=== PATIENT | female | born 1935 | race Caucasian/White ===

== ENCOUNTER 2023-03-19 13:48 | Emergency (ER) | payer MEDICARE, OTHER, SELFPAY ==
--- NOTE | 2023-03-19 13:50 | CRLHL7_ITS ---
For Patients: As a result of the Cures Act, medical imaging exams and procedure reports are released immediately into your electronic medical record. You may view this report before your referring provider. If you have questions, please contact your health care provider. INDICATION: Trauma. Fall. Hip pain. TECHNIQUE: AP pelvis and 2 views of the left hip. FINDINGS: No acute fracture or dislocation of the pelvis or left hip. Degenerative change of the lower lumbar spine. IMPRESSION: Negative pelvis and left hip. Dictated by Sudhakar Perry MD @ 03/19/2023 2:34:13 PM (Electronically Signed)
[2023-03-19 13:54] VITALS: BP 142/71; PULSE 69; RESP 15; TEMP 36.8; O2SAT 97; BMI 21.6
--- NOTE | 2023-03-19 13:54 | ED.GENADULT ---
HPI - General Adult General Chief complaint: Extremity Pain/Injury, Lower Stated complaint: Hip Pain Time Seen by Provider: 03/19/23 13:49 History of Present Illness HPI narrative: Patient is an 87 year white female memory care patient who had a witnessed fall she initially was reported to have some right hip pain was sent in by ambulance today ER. Should her vital signs have been stable. She complains limitedly. She has a picture sheet that shows her emotional state and needs. She is unable to really pick out any information about her pain or if she is in pain. She seems to have some discomfort in her left hip area, right hip she is able to flex extend fairly fully with my assistance. Her left hip as well but she has some discomfort in her left hip. Her legs are not shortened or externally rotated. She has no tenderness apparent to head neck back chest or abdomen or upper extremity. Again exam and history is limited due to her cognitive condition Related Data Home Medications Medication Instructions Recorded Confirmed acetaminophen 325 mg capsule 650 mg PO Q6H PRN 03/19/23 03/19/23 aspirin 81 mg chewable tablet 81 mg PO DAILY 03/19/23 03/19/23 (Aspirin Childrens) Allergies Allergy/AdvReac Type Severity Reaction Status Date / Time Sulfa (Sulfonamide Allergy Intermediate Unknown Verified 03/19/23 13:54 Antibiotics) adhesive tape AdvReac Intermediate Unknown Verified 03/19/23 13:54 Review of Systems Status of ROS: Reports: unobtainable due to medical condition [facility] Social History Smoking Status: Never smoker Do you use any of these nicotine containing products: None Second hand tobacco smoke exposure: No How often do you have a drink containing alcohol: never How often do you have six or more drinks on one occasion: Never AUDIT-C Alcohol total score: 0 Non-prescribed substance use: denies use service: No Exam Narrative: Exam Narrative: Objective: In general patient but does not appear in distress she is transferred from the [facility] HEENT is unremarkable no obvious trauma or injury no midline tenderness to palpation back exam unremarkable chest unremarkable abdomen soft pelvis is stable she is able to flex extend her hips internally external external internally and externally rotate her hips fairly well, seems a little more discomfort on the left 1 distal CMS is normal left lower extremity and right lower extremity Good peripheral perfusion noted. Apparently the fall was accidental Const: Vital Signs, click to edit/add: Vital Signs - 24 hr 03/19/23 13:54 Temperature 98.2 F Pulse Rate [Pulse Oximeter] 69 Respiratory Rate 15 Blood Pressure [Ri ght Upper Arm] 142/71 H Pulse Oximetry 97 Oxygen Delivery Me thod Room Air Course Vital Signs Vital signs: Initial Vital Signs Temperature 98.2 F 03/19/23 13:54 Temperature Source Temporal Artery Scan 03/19/23 13:54 Pulse Rate 69 03/19/23 13:54 Respiratory Rate 15 03/19/23 13:54 Blood Pressure 142/71 H 03/19/23 13:54 Blood Pressure Mean 94 03/19/23 13:54 Pulse Oximetry 97 03/19/23 13:54 Oxygen Delivery Method Room Air 03/19/23 13:54 Vital Signs Temperature 98.2 F 03/19/23 13:54 Pulse Rate 69 03/19/23 13:54 Respiratory Rate 15 03/19/23 13:54 Blood Pressure 142/71 H 03/19/23 13:54 Pulse Oximetry 97 03/19/23 13:54 Oxygen Delivery Method Room Air 03/19/23 13:54 Temperature 98.2 F 03/19/23 13:54 Pulse Rate 69 03/19/23 13:54 Respiratory Rate 15 03/19/23 13:54 Blood Pressure 142/71 H 03/19/23 13:54 Pulse Oximetry 97 03/19/23 13:54 Oxygen Delivery Method Room Air 03/19/23 13:54 Medical Decision Making [facility] Narrative Medical decision making narrative: [age] year white female memory care patient with fall with reported right hip pain but seems to have more clinically relevant left hip pain. Will check a pelvis x-ray left hip x-ray. Will give her some Tylenol orally. Disposition pending findings above. Addendum: The patient's daughter Mendy is here. Low well as pelvis and left hip were negative. Will see if we can do little ambulation as she typically ambulates at home. If she passes with physical therapy assessment I think we can allow her to go back to Memory Care in [place] at [place]. Patient was able to ambulate with assistance and they feel they can get additional assistance at [facility]. The patient will be discharged home, return to primary care or to us as needed. Discharge Plan Discharge Clinical Impression: Fall Patient Disposition: Home w/ Parent or Adult Condition: Improved Additional Instructions: Ambulation as tolerated, would recommend use of a walker. Tylenol as needed for discomfort, return if problems or concerns. Update regular physician within the next day or 2 Activity Level: Light activity Discharge Diet: Regular Prescriptions: No Action acetaminophen 325 mg capsule 650 mg PO Q6H PRN aspirin [Aspirin Childrens] 81 mg tablet,chewable 81 mg PO DAILY Stand Alone Forms: [employer] Info Instructions
[2023-03-19] MEDS: ACETAMINOPHEN 500 MG TABLET 1000 MG PO (15:33)
== END 2023-03-19 16:10 | disposition home or self-care (01) ==
PROVIDERS: Emergency Provider Family Medicine; PCP Family Medicine
DX: M25.551 Pain in right hip (principal); W19.XXXA Unspecified fall, initial encounter
CPT/HCPCS: 73502; 97161; 99283; 99284; A9270

== ENCOUNTER 2024-02-24 19:35 | Inpatient (IN) | payer MEDICARE, BC, SELFPAY ==
[2024-02-24 19:44] VITALS: BP 198/89; PULSE 100; RESP 24; TEMP 37.4; O2SAT 92; BMI 20.1
--- NOTE | 2024-02-24 19:54 | XR_ITS ---
Patient: UMESH OSCEOLA Facility:?[facility] Patient ID:?[id number] Site Patient ID:?[id number]. Site :?[id number] Study:?XRay-Chest 1V PORTABLE-02/24/2024 8:42:57 PM Ordering Physician:JOSE Final Report: INDICATION: Fever, ill TECHNIQUE: Chest radiograph 1 view COMPARISON: None FINDINGS: Mediastinum: The mediastinum is normal in appearance. The heart silhouette is normal in size and morphology. Lung: Mild nodular interstitial opacities are present in the right lung base. A cluster of small calcified granulomas are present in the left lung base. No sign of pleural effusion seen. No pneumothorax is identified. Bone and Soft tissue: Remote appearing right rib fractures are present including the 5th and 6th ribs. IMPRESSION: 1. Mild nodular interstitial opacities are present in the right lung base. Dictated by Edlon Avendaño MD @ 02/24/2024 9:27:54 PM Dictated by: Eldon Avendaño MD @ 02/24/2024 21:27:57 Signed by:?Eldon Avendaño MD @02/24/2024 9:27:57 PM (Electronic Signature)
--- NOTE | 2024-02-24 20:11 | ED_ITS ---
HPI - General Adult General Date Seen: 02/24/24 Chief complaint: Fever Stated complaint: Ill Time Seen by Provider: 02/24/24 19:42 Source: EMS and RN notes reviewed Mode of arrival: EMS Limitations: altered mental status History of Present Illness HPI narrative: Patient is an 88-year-old who presents from [facility]. She was reported to have an influenza test positive for influenza a, fever to 101.3, an altered mental status, ?not acting normal, not otherwise specified. Patient herself is unable to provide any history, she simply responds ?okay to everything. Related Data Home Medications Medication Instructions Recorded Confirmed aspirin 81 mg chewable tablet 81 mg PO DAILY 03/19/23 02/25/24 (Aspirin Childrens) acetaminophen 500 mg tablet 1,000 mg PO TID 02/25/24 02/25/24 melatonin 3 mg tablet 6 mg PO HS 02/25/24 02/25/24 polyethylene glycol 3350 17 17 g PO DAILY 02/25/24 02/25/24 gram/dose oral powder vit C 250 mg-vit E 90 mg-zinc 40 1 cap PO BID 02/25/24 02/25/24 mg-copper 1 [id number] capsule (PreserVision AREDS-2) Allergies Allergy/AdvReac Type Severity Reaction Status Date / Time Sulfa (Sulfonamide Allergy Intermediate Unknown Verified 03/19/23 13:54 Antibiotics) adhesive tape AdvReac Intermediate Unknown Verified 03/19/23 13:54 Review of Systems Status of ROS: Reports: unobtainable due to mental status [facility] Medical History (Updated 03/01/24 @ 08:58 by Liz Cisneros MD) Dementia ?F03.90 - Unspecified dementia, unspecified severity, without behavioral disturbance, psychotic disturbance, mood disturbance, and anxiety (ICD-10) Arthritis ?M19.90 - Unspecified osteoarthritis, unspecified site (ICD-10) Malignant neoplasm of lung ?C34.90 - Malignant neoplasm of unspecified part of unspecified bronchus or lung (ICD-10) POLST (Physician Orders for Life-Sustaining Treatment) ?Z78.9 - Other specified health status (ICD-10) Surgical History (Updated 02/25/24 @ 00:11 by Vivienne Corey PA-C) History of lobectomy of lung ?Z90.2 - Acquired absence of lung [part of] (ICD-10) Social History What is your current living situation?: I presently have a place to live Problems where you live: no known problems Problems where you live details: no known problems per daughter In the past 12 months, utilities in danger of being shut off: no In past 12 months, lack of transportation kept you from medical appts, meetings, work, or getting things needed for daily living: no Smoking Status: Former smoker What tobacco products do you use: cigarettes Smoking quit date/years: >15 years ago Do you use any of these nicotine containing products: None Second hand tobacco smoke exposure: Yes How often do you have a drink containing alcohol: never How often do you have six or more drinks on one occasion: Never AUDIT-C Alcohol total score: 0 Non-prescribed substance use: denies use Caffeine: No How often does anyone, including family, friends and others, physically hurt you : never How often does anyone, including family, friends and others, insult or talk down to you: never How often does anyone, including family, friends and others, threaten you with harm: never How often does anyone, including family, friends and others, scream or curse at you: never service: No Exam Narrative: Exam Narrative: Vital signs as noted above. In general, an alert, frail elderly female. Head: Normocephalic, atraumatic. Eyes: Pupils are equal reactive. Extraocular movements are full. Conjunctivae are normal. ENT: Mucous membranes are slightly dry. Neck: Supple without lymphadenopathy. Heart: Borderline tachycardic, no murmur. Lungs: Clear bilaterally. No increased work of breathing, crackles or wheezes. Abdomen: Soft and nontender. No organomegaly. Extremities: Well perfused. No edema. No calf tenderness. Pulses intact. Neurologic: Patient is alert. Unable to assess orientation. Face is symmetric. Reported have some right-sided weakness at baseline. Not currently following commands, difficult to assess. Affect: Normal. Skin: Warm and dry. Well perfused. Const: Vital Signs, click to edit/add: Vital Signs - 24 hr 02/24/24 19:44 Temperature 99.4 F Pulse Rate [Right Brachial] 100 Respiratory Rate 24 Blood Pressure [Ri ght Upper Arm] 198/89 H Pulse Oximetry 92 Oxygen Delivery Me thod Room Air Documenting provider has reviewed patient's vital signs: yes Course Course ED Course: IV was established, she was given 500 mL of normal saline. Chest x-ray by my review showed a little bit of patchy infiltrate in the right base, read as nodular infiltrate by Radiology. White count was mildly elevated at 11.65 with 85% neutrophils. Hemoglobin 9.8, baseline unknown. Metabolic panel unremarkable. Lactate 0.9, CRP elevated at 3.5. Left spoke with patient's daughter, she says she has been lethargic and weak today. Does not feel that assisted will be able to manage her in her current state. Plan will be admission to the hospital for treatment of influenza, pneumonia, weakness. Azithromycin, Rocephin given. Vital Signs Vital signs: Initial Vital Signs Temperature 99.4 F 02/24/24 19:44 Temperature Source Oral 02/24/24 19:44 Pulse Rate 100 02/24/24 19:44 Pulse Rhythm Regular 02/24/24 19:44 Pulse Strength 1+ Faint 02/24/24 19:44 Respiratory Rate 24 02/24/24 19:44 Blood Pressure 198/89 H 02/24/24 19:44 Blood Pressure Mean 125 H 02/24/24 19:44 Blood Pressure Position Sitting 02/24/24 19:44 Pulse Oximetry 92 02/24/24 19:44 Oxygen Delivery Method Room Air 02/24/24 19:44 Vital Signs Temperature 99.4 F 02/24/24 19:44 Pulse Rate 100 02/24/24 19:44 Respiratory Rate 24 02/24/24 19:44 Blood Pressure 198/89 H 02/24/24 19:44 Pulse Oximetry 92 02/24/24 19:44 Oxygen Delivery Method Room Air 02/24/24 19:44 Temperature 99.1 F 03/01/24 09:06 Pulse Rate 91 03/01/24 09:06 Respiratory Rate 24 03/01/24 09:06 Blood Pressure 135/75 03/01/24 09:06 Pulse Oximetry 91 03/01/24 09:06 Oxygen Delivery Method Room Air 03/01/24 09:06 Oxygen Flow Rate 0.5 02/29/24 07:51 Medications Administered Medications: Discontinued Medications Generic Name Dose Route Start Last Admin Trade Name Freq PRN Reason Stop Dose Admin Acetaminophen 650 - 975 mg 02/25/24 00:16 02/26/24 20:40 Acetaminophen 325 Mg Tablet PO 650 mg Q6H PRN Administration Acetaminophen 650 mg 02/25/24 02:12 02/26/24 02:09 Acetaminophen 650 Mg Supp VA 650 mg Q6H PRN Administration Fever,comfort Amoxicillin 1,000 mg 02/26/24 21:00 02/29/24 15:38 Amoxicillin 250 Mg Capsule PO 02/29/24 20:59 1,000 mg TID SAROJ Administration Aspirin 81 mg 02/25/24 09:00 03/01/24 07:59 Aspirin 81 Mg Tab.Chew PO 81 mg DAILY SAROJ Administration Azithromycin 500 mg 02/24/24 22:47 02/24/24 23:20 Azithromycin 250 Mg Tablet PO 02/24/24 22:48 Not Given ONCE ONE Azithromycin 500 mg 02/26/24 13:00 02/28/24 14:07 Azithromycin 250 Mg Tablet PO 500 mg Q24H SAROJ Administration Enoxaparin Sodium 30 mg 02/25/24 02:00 03/01/24 01:53 Enoxaparin 30 Mg/0.3ml Inj SUBCUT 30 mg Q24H SAROJ Administration Sodium Chloride 500 mls @ 500 mls/hr 02/24/24 19:53 02/24/24 22:20 0.9 % Sodium Chloride 500 Ml IV 02/24/24 20:52 Infused .Q1H ONE Infusion Ceftriaxone Sodium 1 gm/ 100 mls @ 200 mls/hr 02/24/24 22:47 02/25/24 00:13 Sodium Chloride IVPB 02/24/24 22:48 Infused ONCE ONE Infusion Azithromycin 500 mg/ Sodium 255 mls @ 255 mls/hr 02/24/24 23:18 02/24/24 23:58 Chloride IVPB 02/24/24 23:19 255 mls/hr ONCE ONE Administration Ceftriaxone Sodium 1 gm/ 100 mls @ 200 mls/hr 02/26/24 00:15 02/26/24 02:16 Sodium Chloride IVPB 200 mls/hr Q24H SAROJ Administration Azithromycin 500 mg/ Sodium 255 mls @ 255 mls/hr 02/26/24 01:00 02/26/24 03:03 Chloride IVPB 255 mls/hr Q24H SAROJ Administration Sodium Chloride 1,000 mls @ 75 mls/hr 02/25/24 00:19 02/25/24 02:01 0.9 % Sodium Chloride 1000 Ml IV 75 mls/hr .[id number] SAROJ Administration Dextrose/Lactated Ringer's 1,000 mls @ 75 mls/hr 02/25/24 10:05 02/25/24 22:48 5 % Dextrose In Lac Ringer's IV 75 mls/hr .[id number] SAROJ Administration Dextrose/Lactated Ringer's 1,000 mls @ 125 mls/hr 02/26/24 08:23 02/26/24 09:26 5 % Dextrose In Lac Ringer's IV Not Given .Q8H SAROJ Dextrose/Lactated Ringer's 1,000 mls @ 75 mls/hr 02/26/24 12:04 02/26/24 14:47 5 % Dextrose In Lac Ringer's IV 75 mls/hr .[id number] SAROJ Administration Melatonin 6 mg 02/25/24 21:00 02/29/24 20:41 Melatonin 3 Mg Tablet PO 6 mg HS SAROJ Administration Oseltamivir Phosphate 30 mg 02/25/24 09:00 02/29/24 08:44 Oseltamivir 30 Mg Capsule PO 02/29/24 09:01 30 mg BID SAROJ Administration Potassium Chloride 20 meq 02/26/24 08:22 02/26/24 09:35 Potassium Chloride 10 Meq Capsule Er PO 02/26/24 08:23 20 meq ONCE ONE Administration Potassium Chloride 20 meq 02/26/24 12:04 02/26/24 13:23 Potassium Chloride 10 Meq Capsule Er PO 02/26/24 12:05 20 meq ONCE ONE Administration Potassium Chloride 20 meq 02/27/24 09:11 02/27/24 11:31 Potassium Chloride 10 Meq Capsule Er PO 02/27/24 09:12 20 meq ONCE ONE Administration Potassium Chloride 20 meq 02/28/24 18:00 03/01/24 07:59 Potassium Chloride 10 Meq Capsule Er PO 03/01/24 08:01 20 meq BIDWM SAROJ Administration Sodium Chloride 5 ml 02/25/24 09:00 02/27/24 21:04 Sodium Chloride 0.9 % (Flush) 10 Ml Syringe IVF Not Given BID SAROJ Medical Decision Making Lab Data Labs: Lab Results 02/24/24 02/24/24 Range/Units 21:43 22:48 WBC 11.65 H (4.50-11.00) K/uL RBC 3.81 L (4.00-5.20) m/uL Hgb 9.8 L (12.0-16.0) gm/dL Hct 31.9 L (33.0-51.0) % MCV 84 (80-100) fL MCH 26 (26-34) pg MCHC 31 L (32-36) gm/dL RDW Coeff of Aidee 17.7 H (11.5-15.5) % Plt Count 246 (140-440) K/uL Neut % (Auto) 84.5 H (42.0-72.0) % Lymph % (Auto) 5.9 L (20-44) % [place] % (Auto) 9.2 (0.0-11.0) % Eos % (Auto) 0.0 (0.0-7.0) % Baso % (Auto) 0.2 (0.0-3.0) % Neut # (Auto) 9.80 H (1.7-7.0) K/uL Lymph # (Auto) 0.70 L (0.90-2.90) K/uL [place] # (Auto) 1.10 H (0.00-0.90) K/UL Eos # (Auto) 0.00 (0.00-0.50) K/uL Baso # (Auto) 0.00 (0.00-0.30) K/uL Abs Immat Gran (auto) 0.00 (0.00-0.30) K/uL Imm/Tot Granulo (auto) 0.2 % Sodium 137 (135-149) mmol/L Potassium 3.5 L (3.6-5.1) mmol/L Chloride 106 (96-114) mmol/L Carbon Dioxide 22 (20-32) mmol/L Anion Gap 9 (7-15) mEq/L BUN 20 (7-30) mg/dL Creatinine 0.6 (0.5-1.5) mg/dL Estimated Creat Clear 29.91 Estimated GFR 87 ml/min Glucose 131 H (60-115) mg/dL Lactate 0.9 (0.5-1.9) mmol/L Calcium 8.3 L (8.4-10.6) mg/dL Total Bilirubin 0.3 (0.1-1.5) mg/dL Direct Bilirubin 0.0 (0.0-0.5) mg/dL AST 27 (12-35) U/L ALT 11 (4-35) U/L Alkaline Phosphatase 91 (40-150) U/L C-Reactive Protein 3.5 H (0.5-1.0) mg/dL Total Protein 6.1 (6.0-8.3) g/dL Albumin 3.3 (3.3-5.0) g/dL SARS-CoV-2 (PCR) Negative SARS-CoV-2 (Negative) Influenza Type A (PCR) POSITIVE PCR FLU A A (Negative) Influenza Type B (PCR) Negative PCR FLU B (Negative) RSV (PCR) Negative PCR RSV (Negative) Discharge Plan Discharge Clinical Impression: Community acquired pneumonia, Influenza Patient Disposition: Admitted As Observation Condition: Stable Activity Level: Up with assist and Use Walker Discharge Diet: Regular
[2024-02-24] MEDS: 0.9 % SODIUM CHLORIDE 500 ML 500 ML IV (20:39)
[2024-02-24 21:49] LABS: Lactate Sepsis w/Reflex* 0.9 mmol/L (0.5-1.9)
[2024-02-24 21:50] LABS: Basophils Percent Auto 0.2 % (0.0-3.0); Hematocrit 31.9 % (33.0-51.0); Hemoglobin* 9.8 gm/dL (12.0-16.0); Immature Granulocytes Pct Auto 0.2 %; Lymphocytes Percent Auto 5.9 % (20-44); Mean Corpuscular HGB Conc 31 gm/dL (32-36); Mean Corpuscular Hemoglobin 26 pg (26-34); Mean Corpuscular Volume 84 fL (80-100); Monocytes Percent Auto 9.2 % (0.0-11.0); Neutrophils Percent Auto 84.5 % (42.0-72.0); Platelet Count* 246 K/uL (140-440); RDW Coefficient of Variation % 17.7 % (11.5-15.5); Red Blood Count 3.81 m/uL (4.00-5.20); White Blood Count* 11.65 K/uL (4.50-11.00)
[2024-02-24 21:58] LABS: Slide Review Reflex No
[2024-02-24 22:23] LABS: Albumin* 3.3 g/dL (3.3-5.0); Chloride* 106 mmol/L (96-114); Potassium* 3.5 mmol/L (3.6-5.1); Sodium* 137 mmol/L (135-149)
[2024-02-24 22:25] LABS: Creatinine* 0.6 mg/dL (0.5-1.5); Est. Creatinine Clearance* 29.91; Estimated Glomerular Filt Rate 87 ml/min
[2024-02-24 22:26] LABS: Alanine Aminotransferase* 11 U/L (4-35); Alkaline Phosphatase* 91 U/L (40-150); Anion Gap 9 mEq/L (7-15); Aspartate Amino Transferase* 27 U/L (12-35); Bilirubin Total* 0.3 mg/dL (0.1-1.5); Blood Urea Nitrogen* 20 mg/dL (7-30); Carbon Dioxide* 22 mmol/L (20-32); Glucose* 131 mg/dL (60-115); Total Protein* 6.1 g/dL (6.0-8.3)
[2024-02-24 22:27] LABS: Calcium* 8.3 mg/dL (8.4-10.6)
[2024-02-24 22:29] LABS: C Reactive Protein* 3.5 mg/dL (0.5-1.0)
[2024-02-24] MEDS: cefTRIAXone 1 GM in 0.9 % SODIUM CHLORIDE Mini-bag 100 ML IVPB (23:19)
[2024-02-24 23:35] LABS: PCR FLU A POSITIVE PCR FLU A (Negative); PCR FLU B Negative PCR FLU B (Negative); PCR RSV Negative PCR RSV (Negative); SARS PCR* Negative SARS-CoV-2 (Negative)
[2024-02-24] MEDS: AZITHROMYCIN 500 MG in 0.9 % SODIUM CHLORIDE 250 ml 250 ML 255 MG IVPB (23:58)
[2024-02-25] VITALS (13 sets, daily range): BP systolic 143–178; BP diastolic 55–83; PULSE 66–90; RESP 16–22; TEMP 37.2–38.2; O2SAT 88–95; BMI 19.0
--- NOTE | 2024-02-25 00:03 | P.IMHP_ITS ---
Hospitalist- H&P: HPI History of Present Illness Date Seen: 02/25/24 Chief complaint: Ill Narrative: Angella Murdock is a 88 year old female past medical history significant for cerebral arterial aneurysm, malignant neoplasm of right lung status post lobectomy, arthritis, fall risk, age related macular degeneration and currently takes only aspirin and vitamins is admitted to the medical floor from the ED for further management weakness related to influenza A. Patient is seen at bedside with her daughter who provides the entire history while the patient sleeps. Patient is a resident at [facility] in [place] where there is an influenza outbreak. Daughter tells me that patient was doing well, feeling her normal self most of the day, until staff noted this evening she became significantly weak and fatigued. She also developed a cough this evening. At that time she was tested for COVID and influenza, returning with positive influenza A. Patient has been sleeping most of the night now. Daughter has noticed an occasional harsh cough. No report of vomiting or diarrhea, though she does has a history of loose stools. Fever of just over 101? this evening. Patient did receive her 1st dose of Tamiflu at [place]. In the ED, patient is noted to have a mild leukocytosis and a chest x-ray which shows mild nodular interstitial opacities in the right lung base. Staff at [place] unable to take patient back as she has been a full 2 person assist this evening. Review of Systems Narrative: REVIEW OF SYSTEMS: Complete review of systems performed and negative unless otherwise stated in HPI or below. As provided by daughter [facility] Medical History (Updated 02/25/24 @ 00:15 by Vivienne Corey PA-C) Arthritis ?M19.90 - Unspecified osteoarthritis, unspecified site (ICD-10) Malignant neoplasm of lung ?C34.90 - Malignant neoplasm of unspecified part of unspecified bronchus or lung (ICD-10) POLST (Physician Orders for Life-Sustaining Treatment) ?Z78.9 - Other specified health status (ICD-10) Surgical History (Updated 02/25/24 @ 00:11 by Vivienne Corey PA-C) History of lobectomy of lung ?Z90.2 - Acquired absence of lung [part of] (ICD-10) Social History Smoking Status: Never smoker Do you use any of these nicotine containing products: None Second hand tobacco smoke exposure: No How often do you have a drink containing alcohol: never How often do you have six or more drinks on one occasion: Never AUDIT-C Alcohol total score: 0 Non-prescribed substance use: denies use service: No Meds Home Medications and Allergies Home Medications Medication Instructions Recorded Confirmed Type acetaminophen 325 mg capsule 650 mg PO Q6H PRN 03/19/23 03/19/23 History aspirin 81 mg chewable tablet 81 mg PO DAILY 03/19/23 03/19/23 History (Aspirin Childrens) Allergies Allergy/AdvReac Type Severity Reaction Status Date / Time Sulfa (Sulfonamide Allergy Intermediate Unknown Verified 03/19/23 13:54 Antibiotics) adhesive tape AdvReac Intermediate Unknown Verified 03/19/23 13:54 Exam Narrative: Exam Narrative: PHYSICAL EXAM General: Sleeping, appears in NAD HEENT: Normocephalic, atraumatic Cardiovascular: RRR, S1S2. No pitting edema Pulmonary: CTA bilaterally without rhonchi, rales, expiratory wheezes. No dyspnea on room air Abdominal: Soft, nondistended, NTTP Neurological: Calm, sleeping Extremities: No gross joint deformity or swelling. Skin: Warm, dry. Const: Vital Signs, click to edit/add: Vital Signs - 24 hr 02/24/24 19:44 Temperature 99.4 F Pulse Rate [Right Brachial] 100 Respiratory Rate 24 Blood Pressure [Ri ght Upper Arm] 198/89 H Pulse Oximetry 92 Oxygen Delivery Me thod Room Air Hospitalist - H&P: Result Labs Labs: Short CBC 02/24/24 Range/Units 21:43 WBC 11.65 H (4.50-11.00) K/uL Hgb 9.8 L (12.0-16.0) gm/dL Hct 31.9 L (33.0-51.0) % Plt Count 246 (140-440) K/uL BMP 02/24/24 21:43 Sodium 137 Potassium 3.5 L Chloride 106 Carbon Dioxide 22 BUN 20 Creatinine 0.6 Glucose 131 H Calcium 8.3 L Liver Function 02/24/24 Range/Units 21:43 Total Bilirubin 0.3 (0.1-1.5) mg/dL Direct Bilirubin 0.0 (0.0-0.5) mg/dL AST 27 (12-35) U/L ALT 11 (4-35) U/L Alkaline Phosphatase 91 (40-150) U/L Albumin 3.3 (3.3-5.0) g/dL Imaging Chest x-ray: Attestation: I have reviewed the pertinent imaging results. Radiologist's impression: TECHNIQUE: Chest radiograph 1 view COMPARISON: None FINDINGS: Mediastinum: The mediastinum is normal in appearance. The heart silhouette is normal in size and morphology. Lung: Mild nodular interstitial opacities are present in the right lung base. A cluster of small calcified granulomas are present in the left lung base. No sign of pleural effusion seen. No pneumothorax is identified. Bone and Soft tissue: Remote appearing right rib fractures are present including the 5th and 6th ribs. IMPRESSION: 1. Mild nodular interstitial opacities are present in the right lung base. Assessment and Plan Assessment and plan (1) Influenza A: Problem comment: Continue Tamiflu b.i.d. for 5 days. Mucinex b.i.d. Encourage fluids Status: Acute (2) Pneumonia: Problem comment: Leukocytosis, right lung base opacities Continue azithromycin and ceftriaxone Mucinex b.i.d. Status: Acute (3) Weakness: Problem comment: In setting of influenza Baseline is 1 assist PT/OT consults emergency medical services coordinator for discharge planning Status: Acute Total Time Spent Total Time Spent: Total time spent caring for the patient today was 45 minutes. This includes time spent for the visit reviewing the chart, time spent during the visit, time spent after the visit and documentation and planning in coordination of care.
[2024-02-25] MEDS: 0.9 % SODIUM CHLORIDE 1000 ml 1,000 ML 75 ML IV (02:01)
[2024-02-25] MEDS: ENOXAPARIN 30 MG/0.3ML INJ SUBCUT (02:04)
[2024-02-25] MEDS: ACETAMINOPHEN 650 MG SUPP PR ×2 (03:14→13:38)
--- NOTE | 2024-02-25 08:30 | PC.NURSE ---
Pt is mostly non nonverbal but occasionally says no with cares. Pt is oriented to self only. Pt had elevated temp overnight, managed with PRN suppository Tylenol. Pt was turned and repositioned throughout night. Pt startles easily, talked through cares as going through them with little relief. Pt tenses with touch, for blood pressures, or turning and repositioning. Pt's bottom was red/pink but blanchable, mepilex placed on coccyx, pillows put under legs for heel elevation. Pt slept throughout most of night. Pt was placed on 1L of nasal cannula due to O2 stats to maintain O2 stats of 90% or greater.
[2024-02-25] MEDS: 5 % DEXTROSE IN LAC RINGER'S 1,000 ML 75 ML IV ×2 (10:27→22:48)
--- NOTE | 2024-02-25 13:12 | P.IMPN_ITS ---
Progress Note: A&P Assessment and plan (1) Hypoxic respiratory failure: Problem details: Likely due to influenza/pneumonia. Status: Acute (2) Influenza A: Problem details: Continue Tamiflu 30 mg b.i.d. for 5 days. Mucinex b.i.d. Encourage p.o. food and fluid Status: Acute (3) Pneumonia: Problem details: Leukocytosis, right lung base opacities A Zithromax in and ceftriaxone for community-acquired pneumonia Status: Acute (4) Weakness: Problem details: In setting of influenza Baseline is 1 assist PT/OT consults animal services officer for discharge planning Status: Acute (5) Dementia: Problem details: Baseline mental status is uncertain. Continue to monitor for behavioral problems. Continue supportive cares Status: Acute Plan 88-year-old female with dementia admitted to the hospital with fever, hypoxia and weakness. Pneumonia and influenza. Treatment with oxygen, fluids, Tamiflu, Zithromax and ceftriaxone. Time Spent With Patient Total time spent: Total time spent today is 60 minutes, 50 minutes in coordination of care and discussing with patient's daughter and other providers ongoing management influenza and weakness Subjective Date Seen: 02/25/24 Interval history: Angella Murdock is a 88 year old female past medical history significant for ce rebral arterial aneurysm, malignant neoplasm of right lung status post lobectomy, arthritis, fall risk, age related macular degeneration and currently takes only aspirin and vitamins is admitted to the medical floor from the ED for further management weakness related to influenza A. Patient is seen at bedside with her daughter who provides the entire history while the patient sleeps. Patient is a resident at [facility] in [place] where there is an influenza outbreak. Daughter tells me that patient was doing well, feeling her normal self most of the day, until staff noted this evening she became significantly weak and fatigued. She also developed a cough this evening. At that time she was tested for COVID and influenza, returning with positive influenza A. Patient has been sleeping most of the night now. Daughter has noticed an occasional harsh cough. No report of vomiting or diarrhea, though she does has a history of loose stools. Fever of just over 101? this evening. Patient did receive her 1st dose of Tamiflu at [facility]. In the ED, patient is noted to have a mild leukocytosis and a chest x-ray which shows mild nodular interstitial opacities in the right lung base. Staff at [facility] unable to take patient back as she has been a full 2 person assist this evening. February 24: She is somnolent today. Unable to give any history. Seen with her daughter who indicates that she has just been sleeping this morning. Not arousing to eat. Still having a fever. Still on IV fluids. Treated with community-acquired pneumonia antibiotics and Tamiflu Exam Narrative: Exam Narrative: Patient is sleeping and difficult to arouse this morning with gentle touch she does briefly open her eyes but then falls back asleep. She does not otherwise respond to commands or interact. Head is without obvious trauma. Eyes are normal. Oropharynx with dry mucous membranes. Neck is supple out mass or adenopathy. Respirations are clear to auscultation except a rare right basilar crackle with somewhat diminished breath sounds. Cardiovascular: S1, S2, regular rate and rhythm. Abdomen is soft without tenderness or mass. Extremities without edema. She appears to move all 4 extremities. Const: Vital Signs, click to edit/add: Vital Signs - 24 hr 02/24/24 19:44 02/25/24 00:17 02/25/24 00:40 Temperature 99.4 F 100.4 F H Pulse Rate Pulse Rate [Pulse Oximeter] 90 Pulse Rate [Right Brachial] 100 Respiratory Rate 24 16 18 Blood Pressure [Le ft Arm] 178/83 H Blood Pressure [Ri ght Upper Arm] 198/89 H Pulse Oximetry 92 89 89 Oxygen Delivery Me thod Room Air Room Air Room Air Oxygen Flow Rate 02/25/24 00:40 02/25/24 03:14 02/25/24 04:50 Temperature 100.7 F H 99.0 F Pulse Rate Pulse Rate [Pulse Oximeter] 86 Pulse Rate [Right Brachial] Respiratory Rate 18 20 Blood Pressure [Le ft Arm] 165/67 H Blood Pressure [Ri ght Upper Arm] Pulse Oximetry 89 88 Oxygen Delivery Me thod Room Air Room Air Oxygen Flow Rate 02/25/24 05:22 02/25/24 07:38 02/25/24 08:15 Temperature 99.6 F Pulse Rate 85 76 Pulse Rate [Pulse Oximeter] 84 Pulse Rate [Right Brachial] Respiratory Rate 22 Blood Pressure [Le ft Arm] 152/74 H Blood Pressure [Ri ght Upper Arm] Pulse Oximetry 94 Oxygen Delivery Me thod Nasal Cannula Oxygen Flow Rate 1 02/25/24 11:44 Temperature 99.9 F H Pulse Rate Pulse Rate [Pulse Oximeter] 75 Pulse Rate [Right Brachial] Respiratory Rate 20 Blood Pressure [Le ft Arm] 149/55 H Blood Pressure [Ri ght Upper Arm] Pulse Oximetry 95 Oxygen Delivery Me thod Nasal Cannula Oxygen Flow Rate 1 Documenting provider has reviewed patient's vital signs: yes Labs Labs: Laboratory Results - last 24 hr 02/24/24 02/24/24 21:43 22:48 WBC 11.65 H RBC 3.81 L Hgb 9.8 L Hct 31.9 L MCV 84 MCH 26 MCHC 31 L RDW Coeff of Aidee 17.7 H Plt Count 246 Neut % (Auto) 84.5 H Lymph % (Auto) 5.9 L [place] % (Auto) 9.2 Eos % (Auto) 0.0 Baso % (Auto) 0.2 Neut # (Auto) 9.80 H Lymph # (Auto) 0.70 L [place] # (Auto) 1.10 H Eos # (Auto) 0.00 Baso # (Auto) 0.00 Abs Immat Gran (auto) 0.00 Imm/Tot Granulo (auto) 0.2 Sodium 137 Potassium 3.5 L Chloride 106 Carbon Dioxide 22 Anion Gap 9 BUN 20 Creatinine 0.6 Estimated Creat Clear 29.91 Estimated GFR 87 Glucose 131 H Lactate 0.9 Calcium 8.3 L Total Bilirubin 0.3 Direct Bilirubin 0.0 AST 27 ALT 11 Alkaline Phosphatase 91 C-Reactive Protein 3.5 H Total Protein 6.1 Albumin 3.3 SARS-CoV-2 (PCR) Negative SARS-CoV-2 Influenza Type A (PCR) POSITIVE PCR FLU A A Influenza Type B (PCR) Negative PCR FLU B RSV (PCR) Negative PCR RSV
--- NOTE | 2024-02-25 16:18 | REH.OT ---
Pt unable to participate in evaluation today d/t level of alertness. Plan to reattempt tomorrow.
--- NOTE | 2024-02-25 16:24 | PC.SOCIAL ---
Discharge planning- Phone call to Pt's daughter Mendy and Pt's son Julien (POA) to discuss discharge plans. Pt's family is aware that [facility] is not able to accept pt back if pt continues to be a 2 person assist with transfers. Discussed possible SNF placement with family. Family would like information sent to [facility], if SNF is needed. Discussed private pay cost, if pt does not get a 3 night inpatient stay during hospitalization. Family is able to make the $10,000 down payment to SNF, if needed. This worker will continue to update family on discharge plans. Secure e-mailed referral packet to Betina at [facility]. Social work will continue follow up as needed.
[2024-02-25] MEDS: ACETAMINOPHEN 325 MG TABLET PO (19:50)
--- NOTE | 2024-02-25 22:51 | PC.NURSE ---
Patient still remains very sleepy this shift. Arousable to Name and touch however does not keep eyes open for longer than a couple seconds. Does not respond to questioning. Was able to stay awake long enough to drink from water pitcher however was unable to take her evening pills. Incontinent of urine. Pt had a temperature of 100.8 - PRN tylenol given rectally.
[2024-02-26] VITALS (12 sets, daily range): BP systolic 142–191; BP diastolic 59–90; PULSE 58–88; RESP 16–72; TEMP 36.5–38.1; O2SAT 89–96; BMI 19.0
[2024-02-26] MEDS: ACETAMINOPHEN 650 MG SUPP PR (02:09)
[2024-02-26] MEDS: cefTRIAXone 1 GM in 0.9 % SODIUM CHLORIDE Mini-bag 100 ML IVPB (02:16)
[2024-02-26] MEDS: ENOXAPARIN 30 MG/0.3ML INJ SUBCUT (02:24)
[2024-02-26] MEDS: AZITHROMYCIN 500 MG in 0.9 % SODIUM CHLORIDE 250 ml 250 ML 255 MG IVPB (03:03)
[2024-02-26 07:12] LABS: Hematocrit 28.6 % (33.0-51.0); Hemoglobin* 8.7 gm/dL (12.0-16.0); Mean Corpuscular HGB Conc 30 gm/dL (32-36); Mean Corpuscular Hemoglobin 26 pg (26-34); Mean Corpuscular Volume 85 fL (80-100); Platelet Count* 186 K/uL (140-440); Red Blood Count 3.35 m/uL (4.00-5.20); White Blood Count* 6.71 K/uL (4.50-11.00)
[2024-02-26 07:15] LABS: Slide Review Reflex No
[2024-02-26 07:27] LABS: Chloride* 105 mmol/L (96-114); Sodium* 136 mmol/L (135-149)
[2024-02-26 07:29] LABS: Creatinine* 0.5 mg/dL (0.5-1.5); Est. Creatinine Clearance* 28.69; Estimated Glomerular Filt Rate 91 ml/min
[2024-02-26 07:30] LABS: Anion Gap 2 mEq/L (7-15); Blood Urea Nitrogen* 14 mg/dL (7-30); Calcium* 7.9 mg/dL (8.4-10.6); Carbon Dioxide* 29 mmol/L (20-32); Glucose* 102 mg/dL (60-115)
--- NOTE | 2024-02-26 08:44 | PC.NURSE ---
Addendum entered by Amira Copeland RN 02/26/24 08:57: PRN Tylenol suppository given for temp of 99.9. Original Note: Patient slept well. Remained in bed all shift. Turned and repositioned. Awakened at times. Most speech is not understandable. Was resistive to cares at times. 1:1 with reassurance effective.?No signs of discomfort.
[2024-02-26] MEDS: POTASSIUM CHLORIDE 10 MEQ CAPSULE ER 20 MEQ PO ×2 (09:35→13:23)
[2024-02-26] MEDS: OSELTAMIVIR 30 MG CAPSULE PO ×2 (09:35→20:42)
--- NOTE | 2024-02-26 09:36 | PC.SOCIAL ---
Addendum entered by BULMARO Madsen 02/26/24 15:18: Phone call to pt's daughter, Mendy, to provide update on discharge plans. Informed pt's daughter that [facility] is reviewing referral. Informed dtr that social work will keep family updated on discharge plans including admission decision from [facility]. Original Note: Discharge planning- Per MD, pt will need a few more days in hospital before being medically cleared for discharge. Received e-mail from Betina Hernandez admissions nurse at [facility] requesting an update on timeframe of discharge. Provided update that pt will be ready for discharge Friday. [facility] requests updated medical and therapy notes to be sent to them tomorrow before making a determination on admission. Social work will follow up with [facility] tomorrow.
[2024-02-26] MEDS: ASPIRIN 81 MG TAB.CHEW PO (09:41)
--- NOTE | 2024-02-26 11:16 | PC.NURSE ---
The patient was noted to have bladder distention and orders for bladder scan were obtained... bladder scanned for 397cc Dr Chambers was notified. He decided no action at this time due to the patient reporting no symptoms. Chani TIM BSN
--- NOTE | 2024-02-26 11:24 | REH.OT ---
Orders received for OT eval and treat. Patient lives at the memory care unit of [facility]. Due to significant dementia, all of her care needs are anticipated by nursing staff. Patient is not able to follow directions or have the ability for new learning.
--- NOTE | 2024-02-26 11:56 | P.IMPN_ITS ---
Progress Note: A&P Assessment and plan (1) Hypoxic respiratory failure: Problem details: Likely due to influenza/pneumonia. Now off supplemental oxygen Status: Acute (2) Influenza A: Problem details: Continue Tamiflu 30 mg b.i.d. for 5 days. Encourage p.o. food and fluid Status: Acute (3) Pneumonia: Problem details: Leukocytosis, right lung base opacities Zithromax in and ceftriaxone for community-acquired pneumonia Status: Acute (4) Weakness: Problem details: In setting of influenza Baseline is 1 assist PT/OT consults director of professional services for discharge planning Status: Acute (5) Dementia: Problem details: Baseline mental status is uncertain. Continue to monitor for behavioral problems. Continue supportive cares. Status: Acute (6) Altered mental status: Problem details: Probably metabolic encephalopathy due to influenza. Early in the admission she was difficult to arouse. Mental status is significantly better. Likely related influenza. Continue supportive cares. Feeding, up in chair, Status: Acute Plan Continue in hospital for supportive cares for treatment of pneumonia and influenza and monitoring for complications. Time Spent With Patient Total time spent: Total time spent today is 40 minutes, 30 minutes in coordination of care discussing with other providers management of influenza, encephalopathy, supportive cares Subjective Date Seen: 02/26/24 Interval history: Angella Murdock is a 88 year old female past medical history significant for cerebral arterial aneurysm, malignant neoplasm of right lung status post lobectomy, arthritis, fall risk, age related macular degeneration and currently takes only aspirin and vitamins is admitted to the medical floor from the ED for further management weakness related to influenza A. Patient is seen at bedside with her daughter who provides the entire history while the patient sleeps. Patient is a resident at [facility] in [place] where there is an influenza outbreak. Daughter tells me that patient was doing well, feeling her normal self most of the day, until staff noted this evening she became significantly weak and fatigued. She also developed a cough this evening. At that time she was tested for COVID and influenza, returning with positive influenza A. Patient has been sleeping most of the night now. Daughter has noticed an occasional harsh cough. No report of vomiting or diarrhea, though she does has a history of loose stools. Fever of just over 101? this evening. Patient did receive her 1st dose of Tamiflu at [facility]. In the ED, patient is noted to have a mild leukocytosis and a chest x-ray which shows mild nodular interstitial opacities in the right lung base. Staff at [facility] unable to take patient back as she has been a full 2 person assist this evening. February 24: She is somnolent today. Unable to give any history. Seen with her daughter who indicates that she has just been sleeping this morning. Not arousing to eat. Still having a fever. Still on IV fluids. Treated with community-acquired pneumonia antibiotics and Tamiflu. February 25: She is now waking up spontaneously. Still sleeping most the day. Will take in p.o. fluids if prompted by the nurse. Exam Narrative: Exam Narrative: Sleeping but arouses to voice. She speaks but mostly nonsensical. No obvious facial asymmetry. Respirations are clear to auscultation except for a few basilar crackles. Cardiovascular: S1, S2, regular rate and rhythm. Abdomen: Bowel sounds active. Abdomen is soft without tenderness. Extremities without edema. Const: Vital Signs, click to edit/add: Vital Signs - 24 hr 02/25/24 13:35 02/25/24 15:00 02/25/24 15:00 Temperature 100.6 F H 99 F Pulse Rate Pulse Rate [Pulse Oximeter] 75 74 Respiratory Rate 20 20 Blood Pressure [Le ft Arm] 154/65 H Pulse Oximetry 93 Oxygen Delivery Me thod Nasal Cannula Oxygen Flow Rate 0.5 02/25/24 19:00 02/25/24 19:50 02/25/24 23:00 Temperature 100.8 F H 100.8 F H 99.9 F H Pulse Rate Pulse Rate [Pulse Oximeter] 66 70 Respiratory Rate 20 22 Blood Pressure [Le ft Arm] 166/71 H 143/57 H Pulse Oximetry 93 90 Oxygen Delivery Me thod Nasal Cannula Nasal Cannula Oxygen Flow Rate 0.5 0.5 02/26/24 00:17 02/26/24 02:09 02/26/24 03:00 Temperature 99.9 F H 98.9 F Pulse Rate Pulse Rate [Pulse Oximeter] 76 Respiratory Rate 22 22 Blood Pressure [Le ft Arm] 150/76 H Pulse Oximetry 92 91 Oxygen Delivery Me thod Nasal Cannula Nasal Cannula Oxygen Flow Rate 1 0.5 02/26/24 03:09 02/26/24 07:00 02/26/24 07:00 Temperature 98.5 F 99.0 F Pulse Rate 58 L Pulse Rate [Pulse Oximeter] 70 Respiratory Rate 18 Blood Pressure [Le ft Arm] 150/75 H Pulse Oximetry 96 Oxygen Delivery Me thod Room Air Oxygen Flow Rate Documenting provider has reviewed patient's vital signs: yes Labs Labs: Laboratory Results - last 24 hr 02/26/24 06:55 WBC 6.71 RBC 3.35 L Hgb 8.7 L Hct 28.6 L MCV 85 MCH 26 MCHC 30 L Plt Count 186 Sodium 136 Potassium 3.0 L Chloride 105 Carbon Dioxide 29 Anion Gap 2 L BUN 14 Creatinine 0.5 Estimated Creat Clear 28.69 Estimated GFR 91 Glucose 102 Calcium 7.9 L
[2024-02-26] MEDS: 5 % DEXTROSE IN LAC RINGER'S 1,000 ML 75 ML IV ×2 (13:12→14:47)
[2024-02-26] MEDS: AZITHROMYCIN 250 MG TABLET 500 MG PO (13:23)
--- NOTE | 2024-02-26 18:23 | PC.NURSE ---
End of shift: The patient is alert to self only... problems with word finding and very soft spoken at times. Takes pills well crushed in pudding. Ax2 and ceiling lift up to the chair. Incontinent of bladder and 1 large incontinent soft formed BM this shift. The patient is a very stiff turn and repo q2. Repositioned last @ 1830. Mepilex to reddened coccyx was replaced today. L forearm IV went bad and orders to DC fluids and IV were obtained this afternoon. The patient was also found to have L forearm large skin tear.. the policy writer typist cleaned it and then applied steri strips. The patient needs assistance with feeding and fluid intake.. she ate about 50% of breakfast and lunch, but she refused to eat dinner. 1 ensure shake was consumed this shift. The patient can be resistive during repositions and likes to grab/pinch.. likes to have things in her hands to help with this. Bed alarm on and the call light is within reach. Chani TIM BSN
[2024-02-26] MEDS: MELATONIN 3 MG TABLET 6 MG PO (20:40)
[2024-02-26] MEDS: ACETAMINOPHEN 325 MG TABLET PO (20:40)
[2024-02-26] MEDS: AMOXICILLIN 250 MG CAPSULE 1000 MG PO (20:44)
[2024-02-27] VITALS (13 sets, daily range): BP systolic 149–175; BP diastolic 70–88; PULSE 70–93; RESP 16–24; TEMP 36.9–37.6; O2SAT 90–98
[2024-02-27] MEDS: ENOXAPARIN 30 MG/0.3ML INJ SUBCUT (03:16)
[2024-02-27 07:05] LABS: Basophils Absolute Auto 0.02 K/uL (0.00-0.30); Basophils Percent Auto 0.3 % (0.0-3.0); Eosinophils Absolute Auto 0.01 K/uL (0.00-0.50); Eosinophils Percent Auto 0.1 % (0.0-7.0); Hematocrit 28.8 % (33.0-51.0); Hemoglobin* 9.1 gm/dL (12.0-16.0); Immature Granulocytes Abs Auto 0.02 K/uL (0.00-0.30); Immature Granulocytes Pct Auto 0.3 %; Lymphocytes Absolute Auto 1.44 K/uL (0.90-2.90); Lymphocytes Percent Auto 20.2 % (20-44); Mean Corpuscular HGB Conc 32 gm/dL (32-36); Mean Corpuscular Hemoglobin 26 pg (26-34); Mean Corpuscular Volume 84 fL (80-100); Monocytes Percent Auto 11.4 % (0.0-11.0); Neutrophils Absolute Auto 4.83 K/uL (1.7-7.0); Neutrophils Percent Auto 67.7 % (42.0-72.0); Platelet Count* 207 K/uL (140-440); RDW Coefficient of Variation % 17.4 % (11.5-15.5); Red Blood Count 3.45 m/uL (4.00-5.20); White Blood Count* 7.13 K/uL (4.50-11.00)
[2024-02-27 07:25] LABS: Chloride* 105 mmol/L (96-114); Sodium* 135 mmol/L (135-149)
[2024-02-27 07:26] LABS: Potassium* 3.4 mmol/L (3.6-5.1)
[2024-02-27 07:29] LABS: Anion Gap 3 mEq/L (7-15); Blood Urea Nitrogen* 12 mg/dL (7-30); Calcium* 7.8 mg/dL (8.4-10.6); Carbon Dioxide* 27 mmol/L (20-32); Creatinine* 0.4 mg/dL (0.5-1.5); Est. Creatinine Clearance* 29.86; Estimated Glomerular Filt Rate 96 ml/min; Glucose* 88 mg/dL (60-115)
[2024-02-27 07:32] LABS: Slide Review Reflex No
--- NOTE | 2024-02-27 08:01 | PC.NURSE ---
Patient easily awakened to name during the night. ?Resistive to care at times. Redirection effective. PRN Tylenol given for temp of 100.6. Recheck temps were 98.4 and 98.9. No signs of pain.?
[2024-02-27] MEDS: ASPIRIN 81 MG TAB.CHEW PO (08:42)
[2024-02-27] MEDS: OSELTAMIVIR 30 MG CAPSULE PO ×2 (08:42→20:56)
[2024-02-27] MEDS: AMOXICILLIN 250 MG CAPSULE 1000 MG PO ×3 (08:43→20:53)
[2024-02-27 09:43] LABS: Magnesium* 1.7 mg/dL (1.5-2.6)
--- NOTE | 2024-02-27 10:05 | PC.SOCIAL ---
Discharge planning: Called [facility] and spoke with Betina in admissions. [facility] does not have a bed available today and do not accept admissions on the weekend, but will have a bed for pt on Friday. Faxed requested updated information and will follow up as needed.
--- NOTE | 2024-02-27 11:23 | PM.IMPN1 ---
Progress Note: A&P Assessment and plan (1) Hypoxic respiratory failure: Problem details: Likely due to influenza/pneumonia. Was briefly off supplemental oxygen yesterday. Although she is back on oxygen late yesterday into today, it does not appear that her condition has changed or worsened. I think she does not need repeat imaging today. Monitor and attempt to wean O2 again today. Status: Acute (2) Influenza A: Problem details: Continue Tamiflu 30 mg b.i.d. for 5 days (02/24-02/28). Encourage p.o. food and fluid Status: Acute (3) Pneumonia: Problem details: Leukocytosis, right lung base opacities Zithromax and ceftriaxone for community-acquired pneumonia Status: Acute (4) Weakness: Problem details: In setting of influenza Baseline is 1 assist PT/OT consults financial services manager for discharge planning Planning discharge to [facility] on Friday. Status: Acute (5) Dementia: Problem details: Baseline mental status is uncertain. Continue to monitor for behavioral problems. Continue supportive cares. Status: Acute (6) Altered mental status: Problem details: Probably metabolic encephalopathy due to influenza. Early in the admission she was difficult to arouse. Mental status is significantly better. Likely related influenza. Continue supportive cares. Feeding, up in chair Status: Acute (7) Anemia: Problem details: normocytic, stable Status: Acute (8) Hypokalemia: Problem details: Was given oral replacement yesterday with good effect. Repeat dose this morning. Recheck tomorrow. Mg level this am is wnl. Status: Acute Subjective Time Seen by Provider: 09:35 Date Seen: 02/27/24 Interval history: Angella is at baseline essentially nonverbal with occasional nonsensical speech. She is waking up more today and taking some PO intake, but is also back on oxygen at 1LPM., sats are 92% on that. Exam Narrative: Exam Narrative: General: No acute distress. Awake, alert. Occasional speech, nonsensical. No pallor. No jaundice. Oropharynx: Clear. Mucous membranes moist. Cardiovascular: Regular rate and rhythm. No murmurs, gallops, or rubs. Respiratory: Scattered bibasilar crackles, no wheezes. Abdomen: Bowel sounds present. Soft, nondistended, nontender. Extremities: No pedal edema. Const: Vital Signs, click to edit/add: Vital Signs - 24 hr 02/26/24 12:12 02/26/24 14:48 02/26/24 15:00 Temperature 99.1 F 97.7 F Pulse Rate Pulse Rate [Pulse Oximeter] 80 Respiratory Rate 72 H 18 16 Blood Pressure [Le ft Arm] 142/62 H 153/59 H Pulse Oximetry 89 91 Oxygen Delivery Me thod Nasal Cannula Room Air Oxygen Flow Rate 02/26/24 15:30 02/26/24 19:00 02/26/24 23:00 Temperature 100.6 F H 98.4 F Pulse Rate 74 Pulse Rate [Pulse Oximeter] 88 79 Respiratory Rate 24 Blood Pressure [Le ft Arm] 191/90 H Pulse Oximetry 91 91 Oxygen Delivery Me thod Nasal Cannula Nasal Cannula Oxygen Flow Rate 0.5 0.5 02/26/24 23:55 02/27/24 00:00 02/27/24 01:06 Temperature 98.4 F Pulse Rate 72 Pulse Rate [Pulse Oximeter] Respiratory Rate Blood Pressure [Le ft Arm] Pulse Oximetry 91 Oxygen Delivery Me thod Nasal Cannula Oxygen Flow Rate 0.5 02/27/24 03:00 02/27/24 07:02 02/27/24 07:47 Temperature 98.9 F 98.8 F Pulse Rate 70 Pulse Rate [Pulse Oximeter] 75 79 Respiratory Rate 24 24 Blood Pressure [Le ft Arm] 156/81 H 162/82 H Pulse Oximetry 93 92 Oxygen Delivery Me thod Nasal Cannula Nasal Cannula Oxygen Flow Rate 0.5 1 Labs Labs: Laboratory Results - last 24 hr 02/27/24 02/27/24 05:58 09:11 WBC 7.13 RBC 3.45 L Hgb 9.1 L Hct 28.8 L MCV 84 MCH 26 MCHC 32 RDW Coeff of Aidee 17.4 H Plt Count 207 Neut % (Auto) 67.7 Lymph % (Auto) 20.2 [place] % (Auto) 11.4 H Eos % (Auto) 0.1 Baso % (Auto) 0.3 Neut # (Auto) 4.83 Lymph # (Auto) 1.44 [place] # (Auto) 0.80 Eos # (Auto) 0.01 Baso # (Auto) 0.02 Abs Immat Gran (auto) 0.02 Imm/Tot Granulo (auto) 0.3 Sodium 135 Potassium 3.4 L Chloride 105 Carbon Dioxide 27 Anion Gap 3 L BUN 12 Creatinine 0.4 L Estimated Creat Clear 29.86 Estimated GFR 96 Glucose 88 Calcium 7.8 L Magnesium 1.7 Lab Acknowledgement Test Added
[2024-02-27] MEDS: POTASSIUM CHLORIDE 10 MEQ CAPSULE ER 20 MEQ PO (11:31)
[2024-02-27] MEDS: AZITHROMYCIN 250 MG TABLET 500 MG PO (14:27)
[2024-02-27] MEDS: MELATONIN 3 MG TABLET 6 MG PO (20:55)
[2024-02-28] VITALS (7 sets, daily range): BP systolic 151–184; BP diastolic 64–84; PULSE 56–74; RESP 20–24; TEMP 36.1–36.9; O2SAT 88–94
[2024-02-28] MEDS: ENOXAPARIN 30 MG/0.3ML INJ SUBCUT (01:50)
[2024-02-28 06:34] LABS: Basophils Absolute Auto 0.01 K/uL (0.00-0.30); Basophils Percent Auto 0.2 % (0.0-3.0); Eosinophils Absolute Auto 0.03 K/uL (0.00-0.50); Eosinophils Percent Auto 0.6 % (0.0-7.0); Hematocrit 28.6 % (33.0-51.0); Immature Granulocytes Abs Auto 0.03 K/uL (0.00-0.30); Immature Granulocytes Pct Auto 0.6 %; Lymphocytes Absolute Auto 1.46 K/uL (0.90-2.90); Lymphocytes Percent Auto 28.6 % (20-44); Mean Corpuscular HGB Conc 32 gm/dL (32-36); Mean Corpuscular Hemoglobin 26 pg (26-34); Mean Corpuscular Volume 83 fL (80-100); Monocytes Percent Auto 13.3 % (0.0-11.0); Neutrophils Absolute Auto 2.89 K/uL (1.7-7.0); Neutrophils Percent Auto 56.7 % (42.0-72.0); Platelet Count* 208 K/uL (140-440); RDW Coefficient of Variation % 17.3 % (11.5-15.5); Red Blood Count 3.44 m/uL (4.00-5.20)
--- NOTE | 2024-02-28 06:37 | PC.NURSE ---
End of shift note [id number]: Pt noted to be alert at HS with medications crushed and given in chocolate pudding per POC. Pt noted to be primarily nonverbal and could not identify name and birthday when asked by global technical writer. She has no IV in place though order previously given by hospitalist to discontinue IV. Pt noted to have elevated temp of 99.6 at HS though pt has since been afebrile. O2 used at 1 LPM due to O2 sat of 87% noted on RA at HS. O2 has since been tapered down to 0.5 LPM. Pt transfers with EZ stand and has been incontinent of bladder. Healing skin tear to L forearm which has been previously noted is REPORT ANALYST with steri strips in place. Safety Fire Boss placed new Mepilex dressing to coccyx due to soiling of old dressing. Pt currently on telemetry with NSR noted. Pt does become resistive with cares at times due to baseline dementia. ?
[2024-02-28 06:42] LABS: Slide Review Reflex No
[2024-02-28 06:55] LABS: Chloride* 105 mmol/L (96-114); Potassium* 3.3 mmol/L (3.6-5.1); Sodium* 135 mmol/L (135-149)
[2024-02-28 06:57] LABS: Creatinine* 0.4 mg/dL (0.5-1.5); Est. Creatinine Clearance* 29.26; Estimated Glomerular Filt Rate 96 ml/min
[2024-02-28 06:58] LABS: Anion Gap 0 mEq/L (7-15); Blood Urea Nitrogen* 9 mg/dL (7-30); Carbon Dioxide* 30 mmol/L (20-32); Glucose* 82 mg/dL (60-115)
[2024-02-28] MEDS: OSELTAMIVIR 30 MG CAPSULE PO ×2 (08:44→20:21)
[2024-02-28] MEDS: ASPIRIN 81 MG TAB.CHEW PO (08:44)
[2024-02-28] MEDS: AMOXICILLIN 250 MG CAPSULE 1000 MG PO ×3 (08:44→20:19)
[2024-02-28] MEDS: AZITHROMYCIN 250 MG TABLET 500 MG PO (14:07)
--- NOTE | 2024-02-28 17:35 | PM.IMPN1 ---
Progress Note: A&P Assessment and plan (1) Hypoxic respiratory failure: Problem details: Likely due to influenza/pneumonia. Was briefly off supplemental oxygen yesterday. Although she is back on oxygen late yesterday into today, it does not appear that her condition has changed or worsened. I think she does not need repeat imaging. O2 sats improving. Monitor and wean O2 as able. Status: Acute (2) Influenza A: Problem details: Continue Tamiflu 30 mg b.i.d. for 5 days (02/24-02/28). Encourage p.o. food and fluid Status: Acute (3) Pneumonia: Problem details: Leukocytosis, right lung base opacities Zithromax and ceftriaxone for community-acquired pneumonia, day 4 of antibiotics, stop them after tomorrow's doses. Status: Acute (4) Weakness: Problem details: In setting of influenza Baseline is 1 assist PT/OT consults developmental services worker for discharge planning Planning discharge to [facility] on Friday. Status: Acute (5) Dementia: Problem details: Baseline mental status is uncertain. Continue to monitor for behavioral problems. Continue supportive cares. Status: Acute (6) Altered mental status: Problem details: Probably metabolic encephalopathy due to influenza. Early in the admission she was difficult to arouse. Mental status is significantly better. Likely related influenza. Continue supportive cares. Feeding, up in chair Status: Resolved (7) Anemia: Problem details: normocytic, stable Status: Acute (8) Hypokalemia: Problem details: Continue oral replacement. Recheck tomorrow. Mg level wnl 02/26. Status: Acute Subjective Time Seen by Provider: 11:30 Date Seen: 02/28/24 Interval history: Angella is sitting in the chair near the window, smiling and looking out the window. When I greet her, she smiles at me, but does not say anything. There have been no changes overnight. Exam Narrative: Exam Narrative: General: No acute distress. Awake, alert. Nonverbal. No pallor. No jaundice. Cardiovascular: Regular rate and rhythm. No murmurs, gallops, or rubs. Respiratory: Scattered bibasilar crackles, no wheezes. Extremities: No pedal edema. Const: Vital Signs, click to edit/add: Vital Signs - 24 hr 02/27/24 21:00 02/27/24 23:00 02/27/24 23:27 Temperature 99.6 F Pulse Rate 72 Pulse Rate [Pulse Oximeter] 79 73 Respiratory Rate 20 20 Blood Pressure [Le ft Arm] 171/88 H Pulse Oximetry 90 Oxygen Delivery Me thod Nasal Cannula Oxygen Flow Rate 1 02/27/24 23:32 02/27/24 23:51 02/28/24 03:00 Temperature 98.5 F 98.5 F Pulse Rate Pulse Rate [Pulse Oximeter] 73 69 Respiratory Rate 20 20 20 Blood Pressure [Le ft Arm] 159/77 H 168/71 H Pulse Oximetry 93 93 94 Oxygen Delivery Me thod Nasal Cannula Nasal Cannula Nasal Cannula Oxygen Flow Rate 1 1 1 02/28/24 08:03 02/28/24 08:03 02/28/24 08:25 Temperature 97.0 F L Pulse Rate 56 L Pulse Rate [Pulse Oximeter] 62 Respiratory Rate 24 24 Blood Pressure [Le ft Arm] 151/64 H Pulse Oximetry 94 94 Oxygen Delivery Me thod Nasal Cannula Nasal Cannula Oxygen Flow Rate 0.5 0.5 02/28/24 15:19 02/28/24 15:26 Temperature 98.2 F Pulse Rate 74 Pulse Rate [Pulse Oximeter] 71 Respiratory Rate 20 Blood Pressure [Le ft Arm] 175/84 H Pulse Oximetry 93 Oxygen Delivery Me thod Nasal Cannula Oxygen Flow Rate 0.5 Labs Labs: Laboratory Results - last 24 hr 02/28/24 05:27 WBC 5.10 RBC 3.44 L Hgb 9.0 L Hct 28.6 L MCV 83 MCH 26 MCHC 32 RDW Coeff of Aidee 17.3 H Plt Count 208 Neut % (Auto) 56.7 Lymph % (Auto) 28.6 [place] % (Auto) 13.3 H Eos % (Auto) 0.6 Baso % (Auto) 0.2 Neut # (Auto) 2.89 Lymph # (Auto) 1.46 [place] # (Auto) 0.70 Eos # (Auto) 0.03 Baso # (Auto) 0.01 Abs Immat Gran (auto) 0.03 Imm/Tot Granulo (auto) 0.6 Sodium 135 Potassium 3.3 L Chloride 105 Carbon Dioxide 30 Anion Gap 0 L BUN 9 Creatinine 0.4 L Estimated Creat Clear 29.26 Estimated GFR 96 Glucose 82 Calcium 8.0 L
[2024-02-28] MEDS: POTASSIUM CHLORIDE 10 MEQ CAPSULE ER 20 MEQ PO (18:30)
[2024-02-28] MEDS: MELATONIN 3 MG TABLET 6 MG PO (20:20)
[2024-02-29] MEDS: ENOXAPARIN 30 MG/0.3ML INJ SUBCUT (02:20)
--- NOTE | 2024-02-29 06:32 | PC.NURSE ---
End of shift note [id number]: Pt alert when up in chair though is mostly nonverbal due to baseline dementia. She continues to have fragile intact skin/blanchable reddened area to coccyx/sacral area. Ductfixing Plumber applied new Mepilex dressing to this area after changing old dressing due to soilage. Pt does become resistive with cares at times, particularly luiz cares. She has been assist of 2 with repositioning in bed and requires EZ stand for transferring. Pt does not ambulate and has had no verbal or nonverbal indications of pain throughout the shift. Oxygen administered at 0.5 LPM at HS due to O2 sat of 88% when on RA. No coughing noted or reported. Pt remains incontinent of bowel and bladder. Pt's blood pressures noted to trend higher?(184/80 noted last evening) though pt asymptomatic. Ductfixing Plumber updated MD Muñoz with no new orders given. gave order to discontinue telemetry. Healing skin tear to L forearm remains PERINATAL NURSE with no s/s of infection observed. ?
[2024-02-29 06:51] LABS: Potassium* 3.8 mmol/L (3.6-5.1)
[2024-02-29 07:51] VITALS: BP 170/68; PULSE 90; RESP 20; TEMP 36.7; O2SAT 94
[2024-02-29] MEDS: POTASSIUM CHLORIDE 10 MEQ CAPSULE ER 20 MEQ PO ×2 (08:44→18:16)
[2024-02-29] MEDS: OSELTAMIVIR 30 MG CAPSULE PO (08:44)
[2024-02-29] MEDS: ASPIRIN 81 MG TAB.CHEW PO (08:44)
[2024-02-29] MEDS: AMOXICILLIN 250 MG CAPSULE 1000 MG PO ×2 (08:44→15:38)
--- NOTE | 2024-02-29 10:21 | P.IMPN_ITS ---
Progress Note: A&P Assessment and plan (1) Hypoxic respiratory failure: Problem details: Likely due to influenza/pneumonia. O2 sats improving. Monitor and wean O2 as able. Status: Acute (2) Influenza A: Problem details: Continue Tamiflu 30 mg b.i.d. for 5 days (02/24-02/28). Last dose today. Encourage p.o. food and fluid Status: Acute (3) Pneumonia: Problem details: Leukocytosis, right lung base opacities Zithromax and ceftriaxone for community-acquired pneumonia, day 5 of antibiotics, stop them after today's doses. Status: Acute (4) Weakness: Problem details: In setting of influenza Baseline is 1 assist PT/OT consults program services assistant for discharge planning Planning discharge to [facility] on Friday (tomorrow). Status: Acute (5) Dementia: Problem details: Baseline mental status is uncertain. Continue to monitor for behavioral problems. Continue supportive cares. Status: Acute (6) Anemia: Problem details: normocytic, stable Status: Acute (7) Hypokalemia: Problem details: Resolved. Status: Resolved Subjective Time Seen by Provider: 10:00 Date Seen: 02/29/24 Interval history: Radha is sitting in the chair by the window, sleeping. She aroused and just looked at me and watched me while I examined her, smiling. She attempted to speak once, but didn't say more than a nonsensical word. No concerns from nursing staff. Weaned down on oxygen, satting 94% on 0.5LPM via NC. Exam Narrative: Exam Narrative: General: No acute distress. Awake, alert. Nonverbal. No pallor. No jaundice. Cardiovascular: Regular rate and rhythm. No murmurs, gallops, or rubs. Respiratory: Scattered bibasilar crackles, improving, no wheezes. Const: Vital Signs, click to edit/add: Vital Signs - 24 hr 02/28/24 15:19 02/28/24 15:26 02/28/24 23:00 Temperature 98.2 F Pulse Rate 74 Pulse Rate [Pulse Oximeter] 71 74 Respiratory Rate 20 20 Blood Pressure [Le ft Arm] 175/84 H Pulse Oximetry 93 Oxygen Delivery Me thod Nasal Cannula Oxygen Flow Rate 0.5 02/28/24 23:12 02/29/24 07:51 02/29/24 07:51 Temperature 97.3 F L 98.0 F Pulse Rate Pulse Rate [Pulse Oximeter] 74 90 Respiratory Rate 20 20 20 Blood Pressure [Le ft Arm] 184/80 H 170/68 H Pulse Oximetry 88 94 94 Oxygen Delivery Me thod Room Air Nasal Cannula Nasal Cannula Oxygen Flow Rate 0.5 0.5 Labs Labs: Laboratory Results - last 24 hr 02/29/24 05:38 Potassium 3.8
[2024-02-29 15:43] VITALS: BP 155/73; PULSE 80; RESP 24; TEMP 36.9; O2SAT 93
[2024-02-29] MEDS: MELATONIN 3 MG TABLET 6 MG PO (20:41)
[2024-02-29 23:00] VITALS: PULSE 76; RESP 24
[2024-02-29 23:48] VITALS: BP 165/77; PULSE 76; RESP 24; TEMP 37.1; O2SAT 92
[2024-03-01] MEDS: ENOXAPARIN 30 MG/0.3ML INJ SUBCUT (01:53)
--- NOTE | 2024-03-01 06:35 | PC.NURSE ---
End of shift note [id number]: Pt primarily nonverbal due to baseline dementia with staff anticipating needs. She requires assist of 2 with repositioning in bed and uses EZ stand for transferring when out of bed. Pt does become resistive with cares at times, primarily with repositioning and luiz cares. She remains incontinent of bladder. Pt has been afebrile this shift. Dressing to coccyx C/D/I. Pt has been on RA this shift with O2 sat of 92% noted. No coughing noted or reported.
[2024-03-01 07:04] LABS: Potassium* 4.4 mmol/L (3.6-5.1)
[2024-03-01] MEDS: POTASSIUM CHLORIDE 10 MEQ CAPSULE ER 20 MEQ PO (07:59)
[2024-03-01] MEDS: ASPIRIN 81 MG TAB.CHEW PO (07:59)
--- NOTE | 2024-03-01 08:53 | PM.DS1 ---
DS: Providers Provider Time Seen by Provider: 07:22 Date Seen: 03/01/24 Date of admission: 02/25/24 11:47 Primary care physician: Bernadine Ortega MD Admitting Clinician: Ariana Ruiz MD Consults: 02/25/24 00:17 Consult to Occupational Therapy [CONS] Routine Comment: Reason(s) for OT Consult:: Evaluate and Treat Any Restrictions?:: No Restrictions Consult to Physical Therapy [CONS] Routine Comment: Reason(s) for PT Consult:: Evaluate and Treat Any Restrictions?:: No Restrictions Consult to Quality Assurance Monitor Chassis [CONS] Routine Comment: Reason for Consult:: Social Service Consult 02/25/24 01:45 Consult to Occupational Therapy [CONS] Routine Comment: Reason(s) for OT Consult:: Evaluate and Treat Any Restrictions?:: See Comment Comment: 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 Off oxygen today. (2) Influenza A: Status: Resolved Problem details: Continue Tamiflu 30 mg b.i.d. for 5 days (02/24-02/28). Completed course. (3) Pneumonia: Status: Resolved Problem details: Leukocytosis, right lung base opacities Zithromax and ceftriaxone for community-acquired pneumonia, completed course of antibiotics 02/29/24. (4) Weakness: Status: Acute Problem details: In setting of influenza Baseline is 1 assist PT/OT consults foreign exchange services manager for discharge planning Planning discharge to [facility] today. (5) Dementia: Status: Chronic Problem details: Appears to be at baseline mental status. (6) Anemia: Status: Acute Problem details: normocytic, stable (7) Hypokalemia: Status: Resolved Problem details: Resolved. (8) Altered mental status: Status: Resolved Problem details: Probably metabolic encephalopathy due to influenza. Early in the admission she was difficult to arouse. Mental status is significantly better. Likely related influenza. 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 She became significantly weak, fatigued, and had a cough. COVID test was negative and influenza A test was positive. She was noted to have a fever and started her 1st dose of Tamiflu at [facility]. She was brought to the ER because of how significantly ill she was and was found to have some mild nodular interstitial opacities of the right lung base on chest x-ray. She was now full 2 person assist. She was admitted for treatment of influenza, and pneumonia, and weakness. She has completed a course of Tamiflu and a course of antibiotics with ceftriaxone and azithromycin for pneumonia. Physical therapy and occupational therapy have seen her and note that at baseline she is assist of 1, but was requiring more assistance and would meet criteria for jail rehab. She is therefore discharged back to [place], but this time the jail facility portion for rehab before going back to [facility]. She is doing well today and in stable condition for discharge. She is at baseline essentially nonverbal. Time Spent with Patient Time attestation: Total time spent providing and/or coordinating discharge services: Exam Narrative: Exam Narrative: General: No acute distress. Awake, alert. Nonverbal. No pallor. No jaundice. Cardiovascular: Regular rate and rhythm. No murmurs, gallops, or rubs. Respiratory: Clear to auscultation bilaterally. No crackles or wheezes. Const: Vital Signs, click to edit/add: Vital Signs - 24 hr 02/29/24 15:43 02/29/24 15:43 02/29/24 23:00 Temperature 98.5 F Pulse Rate [Pulse Oximeter] 80 76 Respiratory Rate 24 24 24 Blood Pressure [Le ft Arm] 155/73 H Pulse Oximetry 93 93 Oxygen Delivery Me thod Room Air Room Air 02/29/24 23:48 Temperature 98.8 F Pulse Rate [Pulse Oximeter] 76 Respiratory Rate 24 Blood Pressure [Le ft Arm] 165/77 H Pulse Oximetry 92 Oxygen Delivery Me thod Room Air DS: Data Data Completed and Pending Completed studies during hospitalization: 02/24/2024 EKG: Sinus rhythm with short ND and premature atrial complexes with aberrant conduction. Heart rate 96 beats per minute. Nonspecific ST wave abnormality. Study: XRay-Chest 1V PORTABLE-02/24/2024 8:42:57 PM Ordering Physician: KHARI Final Report: INDICATION: Fever, ill TECHNIQUE: Chest radiograph 1 view COMPARISON: None FINDINGS: Mediastinum: The mediastinum is normal in appearance. The heart silhouette is normal in size and morphology. Lung: Mild nodular interstitial opacities are present in the right lung base. A cluster of small calcified granulomas are present in the left lung base. No sign of pleural effusion seen. No pneumothorax is identified. Bone and Soft tissue: Remote appearing right rib fractures are present including the 5th and 6th ribs. IMPRESSION: 1. Mild nodular interstitial opacities are present in the right lung base. Dictated by Eldon Avendaño MD @ 02/24/2024 9:27:54 PM Dictated by: Eldon Avendaño MD @ 02/24/2024 21:27:57 Signed by: Eldon Avendaño MD @02/24/2024 9:27:57 PM (Electronic Signature) Dictated By: Eldon Avendaño M.D. Signed By: 02/25/24724 DD/ 26 TD/TT: 02/25/24723 Labs on day of discharge: Labs from last 24 hours 03/01/24 06:07 Potassium 4.4 Discharge Plan Discharge Disposition: Xfer SNF Discharge Location: [facility] Date of Admission: 02/25/24 11:47 Attending Provider on Discharge: Liz Cisneros Primary Care Provider: Bernadine Ortega Condition: Stable Discharge Medications: Continued aspirin [Aspirin Childrens] 81 mg tablet,chewable 81 mg PO DAILY acetaminophen 500 mg tablet 1,000 mg PO TID melatonin 3 mg tablet 6 mg PO HS PreserVision AREDS-2 250-90-40-1 mg capsule 1 cap PO BID polyethylene glycol 3350 17 gram/dose powder 17 g PO DAILY Discharge Orders: Discharge Order (Routine); Ordered 03/01/24 Ordered By: Liz Cisneros Activity Level: Up with assist and Use Walker Discharge Diet: Regular Follow Up Appointments: Bernadine Ortega MD [Primary Care Provider] - Forms: [facility] Info Instructions Admit to: SNF Discharge Potential: Good Length of Stay: <30 days Can use facility standing orders?: Yes Code Status: DNR/DNI Rehab Potential: Fair Therapy: Physical Therapy and Occupational Therapy Therapy Orders: Evaluate and Treat Orders are good >30 days: No Signature: Liz Cisneros MD
[2024-03-01 09:06] VITALS: BP 135/75; PULSE 91; RESP 24; TEMP 37.3; O2SAT 91
--- NOTE | 2024-03-01 10:41 | PC.SOCIAL ---
Discharge planning- Pt was accepted to [facility] for rehab today. Pt will transport via non-emergency EMS at 10:15 am. Pt's daughter is not able to transport and agrees to the EMS fee verbally. Provided update on discharge to pt's son Don (POA). Secure e-mailed discharge orders. Completed preadmission screening. Confirmation #[id number]. Sent PAS to [facility]. Social work will follow up as needed.
--- NOTE | 2024-03-01 10:55 | PC.NURSE ---
Discharge- Pt appeared fatigued, but arousable to verbal stimuli and light shoulder shaking. Pt non-verbal during shift, generally cooperative to staff interaction however, became uncooperative during hygiene, luiz-cares, and repositioning. Unable to verbalize pain, pt behavior did not indicate discomfort. Tolerating RA, regular/soft diet, and fluids. Pt able to eat and drink appropriately with full staff assistance. Incontinent of bowel and bladder per baseline. Mepilex in place on coccyx clean and dry. Steri-strips on L forearm skin tear in place. VSS, afebrile. Pt discharged to [place] via non-emergent EMS transport at approximately 1025.
== END 2024-03-01 10:25 | DRG 193 ==
LOC: ED 02-25 00:21 → MEDSURG 02-25 00:23
PROVIDERS: Family Medicine; Admitting Provider Physician Assistant; Emergency Provider Emergency Medicine; PCP Family Medicine; Visit Provider Family Medicine
DX: J10.08 Influenza due to other identified influenza virus with other specified pneumonia (principal); G93.41 Metabolic encephalopathy; J96.01 Acute respiratory failure with hypoxia; J18.8 Other pneumonia, unspecified organism; J10.00 Influenza due to other identified influenza virus with unspecified type of pneumonia; R53.1 Weakness; F03.90 Unspecified dementia, unspecified severity, without behavioral disturbance, psychotic disturbance, mood disturbance, and anxiety; H35.30 Unspecified macular degeneration; Z85.118 Personal history of other malignant neoplasm of bronchus and lung; D64.9 Anemia, unspecified; E87.6 Hypokalemia
CPT/HCPCS: 36415; 51798; 71045; 80048; 80076; 81001; 83605; 83735; 84132; 85025; 85027; 86140; 87081; 87631; 93005; 97110; 97161; 97530; 99284; G0378; A9270; J0456; J0696; J1650; J7030; J7050

== ENCOUNTER 2024-03-01 10:04 | Outpatient (CLI) | payer MEDICARE, BC, SELFPAY | END 2024-03-01 10:05 | disposition home or self-care (01) | LOC: AMB 03-05 01:00 | PROVIDERS: PCP Family Medicine; Visit Provider Emergency Medicine | DX: Z74.01 Bed confinement status (principal) | CPT/HCPCS: A0425; A0428 ==